=== PATIENT | female | born 1980 | race African-American/Black ===

== ENCOUNTER 2023-03-30 08:43 | Emergency (ER) | payer OTHER ==
[~2023-03-30] VITALS: Ht 167.6 cm; Wt 137.0 kg
[2023-03-30 08:53] VITALS: BP_SYST 116; PULSE 81; RESP 22; TEMP 99.2; O2SAT 97
[2023-03-30] MEDS ORDERED: traMADol HCL HCL 50 MG TABLET (ULTRAM) PO ONE (10:30)
[2023-03-30] MEDS ORDERED: TRAM50TA2 PO (10:31)
[2023-03-30 10:48] VITALS: BP_SYST 92; PULSE 67; RESP 18; TEMP 98; O2SAT 97
== END 2023-03-30 10:49 | disposition home or self-care (01) ==
LOC: SED 08:43
DX: S16.1XXA Strain of muscle, fascia and tendon at neck level, initial encounter (principal); S09.90XA Unspecified injury of head, initial encounter; Z88.6 Allergy status to analgesic agent; Z79.899 Other long term (current) drug therapy; V89.2XXA Person injured in unspecified motor-vehicle accident, traffic, initial encounter; Y93.89 Activity, other specified; Y92.89 Other specified places as the place of occurrence of the external cause; Y99.8 Other external cause status
CPT/HCPCS: 70450-TC; 72125-TC; 76376; 99284